=== PATIENT | female | born 1975 | race Caucasian/White ===

== ENCOUNTER 2020-02-26 19:05 | Emergency (ER) | payer OTHER, SELFPAY ==
--- NOTE | ~2020-02-26 | XR_ITS ---
EXAMINATION: XR wrist RT min 3V EXAM DATE: 02/26/2020 19:39 INDICATION: Initial encounter following injury, with pain of the right wrist, base of thumb. TECHNIQUE: Right wrist frontal, frontal with ulnar deviation, oblique and lateral projections obtain ed and reviewed. Comparison is made to prior examination from 12/04/2015. FINDINGS: Right wrist scapholunate joint space is maintained. There are no acute fractures or disloca tions identified. There is no subcutaneous gas. The soft tissue is unremarkable. There are no rad iopaque foreign bodies. IMPRESSION: No acute osseous findings. Reviewed, dictated and finalized at location A. IMPRESSION: No acute osseous findings.
[2020-02-26 19:20] VITALS: BP 123/81; PULSE 83; RESP 18; TEMP 36.3; O2SAT 99
--- NOTE | 2020-02-26 20:35 | ED.UPPEXIN ---
HPI - Extremity Injury (Upper) General Chief Complaint: Extremity Injury, Upper Stated Complaint: R hand injury Time Seen by Provider: 02/26/20 20:06 History of Present Illness HPI narrative: Patient presents with right thumb and hand pain since falling yesterday. She slipped and fell with her full weight on her right thumb against a wall. She was unable to sleep last night due to the pain. She takes Mobic every day for generalized pain, and an Advil in addition to that did not help. She also tried an old Ultram and that did not help. 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 Last year she saw Dr. Infante for a trigger finger of the right hand he gave a shot and is been better ever since. She is interested in seeing him again this week for this sprain. complaint: injury to: right Onset (ago): day(s) Other Extremity Injury: Right: hand Other injuries: none Handedness: right Place: home Severity: severe Relieving factors: none Exacerbating factors: movement of extremity Context: fall Associated symptoms: denies other symptoms Related Data Allergies Allergy/AdvReac Type Severity Reaction Status Date / Time bacitracin Allergy Intermediate BLISTERS Verified 01/13/19 00:23 latex Allergy Mild PURPLE Verified 01/13/19 00:23 JOVEL ON SKIN Sulfa (Sulfonamide Allergy Mild Verified 01/13/19 00:23 Antibiotics) POTASSIUM CLAVULANATE Allergy Mild HIVES Uncoded 01/13/19 00:23 Review of Systems Review of Systems: Narrative: CONSTITUTIONAL: Denies fever, chills, or sweats. EYES: Denies visual changes, redness, or discharge. ENT: Denies rhinorrhea, congestion, sore throat, or otalgia. CARDIOVASCULAR: Denies chest pain, palpitations, or edema. RESPIRATORY: Denies cough or dyspnea. GASTROINTESTINAL: Denies abdominal pain, nausea, vomiting, or diarrhea. GENITOURINARY: Denies dysuria or hematuria. SKIN: Denies rash or itching. MUSCULOSKELETAL: Denies back pain, or myalgia. NEUROLOGIC: Denies headache, numbness, or weakness. PSYCHIATRIC: Denies anxiety or depression. PMFSH Social History Social History Gender identity (if verbalized by the patient): Female Exam Narrative: Exam Narrative: GENERAL: Well-appearing, well-nourished, and in no acute distress. HEAD: Normocephalic, atraumatic. EYES: PERRLA and EOMI. ENT: Nares clear, no rhinorrhea or epistaxis. Mucous membranes moist. NECK: Supple. CHEST: Clear to auscultation. No respiratory distress. HEART: Regular rate and rhythm. No murmur heard. Normal peripheral pulses. ABDOMEN: Soft, nontender, nondistended, normal active bowel sounds. EXTREMITIES: Tenderness and swelling on the right palm at the thenar eminence. SKIN: Warm, dry, no rash. NEURO: No focal deficits. Alert and oriented x3. PSYCH: Normal mood and affect. Const: General: no acute distress and alert Orientation/consciousness: patient oriented x3 Course Vital Signs Vital signs: Vital Signs Temperature 97.4 F L 02/26/20 19:20 Pulse Rate 83 02/26/20 19:20 Respiratory Rate 18 02/26/20 19:20 Blood Pressure 123/81 02/26/20 19:20 Pulse Oximetry 99 02/26/20 19:20 Temperature 97.4 F L 02/26/20 19:20 Pulse Rate 83 02/26/20 19:20 Respiratory Rate 18 02/26/20 19:20 Blood Pressure 123/81 02/26/20 19:20 Pulse Oximetry 99 02/26/20 19:20 MDM - Extremity Injury (Upper) Medical Records Attestation: I reviewed the patient's medical records. Imaging Data Radiologist's impression: ITS Impressions Wrist X-Ray 02/26/20 19:44 IMPRESSION: No acute osseous findings. Discharge Plan Discharge Clinical Impression: Hand pain Qualifiers: Laterality: right Qualified Code(s): M79.641 - Pain in right hand Fall Qualifiers: Encounter type: initial encounter Qualified Code(s): W19.XXXA - Unspecified fall, initial encounter Hand sprain Qualifiers: Encounter type: initial encounter Laterality: right Qual
[2020-02-26 21:21] VITALS: BP 132/70; PULSE 72; RESP 18; O2SAT 98
== END 2020-02-26 21:22 | disposition home or self-care (01) ==
PROVIDERS: Emergency Provider Emergency Medicine; PCP Nurse Practitioner Family
DX: M79.641 Pain in right hand (principal); W01.0XXA Fall on same level from slipping, tripping and stumbling without subsequent striking against object, initial encounter
CPT/HCPCS: 73110; 99283; A9270